=== PATIENT | female | born 1965 | race Caucasian/White ===

== ENCOUNTER 2017-02-01 17:22 | Emergency (ER) | payer MEDICAID ==
[~2017-02-01] VITALS: Ht 170.2 cm; Wt 104.3 kg
[~2017-02-01 17:22] MED LIST: CIPRO 500MG TA500 MG PO; LORTAB 5/500 501 TAB PO; MAGMTHWSH PO; MEDROL 4MG. DOSE4 MG PO; TYLENOL W/CODEI1 TA2 PO; VIBRAMYCIN 100100 MG PO
--- NOTE | 2017-02-01 17:33 | Urgent Treatment Center Report ---
See Addendum History of Present Issue Date/Time Seen by Provider 02/01/17 1732 Visit Reason Pt arrived:Walked Presenting Problem:PT STATES PAIN TO SHOULDERS THAT BEGAN SEVERAL DAYS AGO. STATES DIARRHEA BEGAN THIS MORNING AND HAS SUBSIDED. STATES NAUSEA AND PAIN TO JOINTS AND LEFT SIDE OF ABDOMEN. STATES TAKING ALEVE AT 1400. ALSO STATES HEADACHE Location if Accident: Onset of symptoms date/time:/ or onset unknown for:MEDICAL HX UNKNOWN Have you (or family members/close friends) recently traveled outside the [place]? N If Yes, where/when: Have you had exposure to infectious disease within the past month? TB? Other? Specify: c/o RUQ pain starting mild and intermittent x weeks but more intense since last night. Woke up this morning feeling feverish, joint pain, chills, diarrhea. diarrhea only this morning, resolved. Indigestion at 0200 resolved w/ gaviscon. RUQ pain has been a persistant "achy pressure" througout the day today w/ pain radiating around abdomen into back. "Like I have a band around me". Joint pain has become worse and more persistant today. Subjective fever improved around 2pm w/ aleve. No medication since. Hx of fibromyalgia and arthritis "this pain is not that". 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 Denies vomiting but constant nausea today. Source patient Exam Limitations no limitations ALLERGIES Coded Allergies: Penicillins (02/01/17) History Medical History General CAD? No Angina: Yes [place]: No Hypertension? No Hyperlipidemia? No CHF? No DVT? No PE? No COPD? No Asthma? No Anemia? No GERD? No Gastric ulcers? No GI Bleed? No Hernia? No Thyroid Problems? No Hypothyroidism? No CVA? No Seizures? No Diabetes? No Renal Insuffiency? No UTI? No Stones? No BPH? No GB Disease: Yes Nephritic Syndrome? No Asplenia? No Hepatitis? No Sickle Cell Disease? No Arthritis? Yes Migraines? No Cataracts? No Glaucoma? No MRSA? No HIV? No TB? No Anxiety? No Depression? No Cancer? No More? Yes Additional hx: FIBROMYALGIA Immunization HX DT/Tetanus 1-4 Years Ago Surgical Hx Previous Surgery?Y Tubal Ligation Social History Smoking Hx Smoker: Current Every Day Smoker Tobacco: Yes Type Cigarettes Packs/day < 1 Pack Alcohol Alcohol: No Review of Systems All Other Systems Reviewed and Negative Constitutional see HPI, malaise Respiratory denies shortness of breath Cardiovascular denies chest pain Gastrointestinal see HPI Genitourinary denies: dysuria, frequency. Musculoskeletal see HPI, denies joint swelling Skin denies change in color, denies lesions, denies lumps, denies rash Psychiatric/Neurological headache, denies numbness, denies tingling Physical Exam Vital Signs Vital Signs Date Time Temp Pulse Resp B/P Pulse O2 O2 Flow FiO2 Ox Delivery Rate 02/01 1727 99.9 101 18 144/84 96 General Appearance no apparent distress, obese Respiratory Status No: respiratory distress, productive cough, non productive cough. Lung Sounds anterior: lungs clear. posterior: lungs clear. bilateral: lungs clear. Cardiovascular no peripheral edema, no murmur, tachycardia Gastrointestinal soft, no organomegaly, no pulsatile mass, abnormal bowel sounds (hyperactive but faint), no guarding, no rebound, tenderness (primarily RUQ but throughout) Back no CVA tenderness Neurologic alert Mental status normal mood/affect Skin normal color, warm/dry Medical Decision Making LABS/Meds/Orders Pt receiving controlled substance in ED? No Results/Orders Laboratory Tests 02/01/171812: Urine Color Cancelled, Urine Appearance Cancelled, Urine pH Cancelled, Ur Specific [place] Cancelled Orders Procedure Date/time Status URINALYSIS/COMPLETE 02/01 1814 Active Progress [facility] Progress Notes Date 02/01/17 Time 1810 Comment Discussed [facility] guidelines and concerning abdominal pain w/ fever and chills. Pt agreeable to transfer to ER. Departure Departure Time of Disposition 1811 Disposition Still a Patient Clinical Impression Primary Impression: Abdominal pain Qualifiers: Abdominal location: right upper quadrant Qualified Code: R10.11 - Right upper quadrant pain Secondary Impressions: Joint pain Qualifiers: Joint pain location: unspecified Qualified Code: M25.50 - Pain in unspecified joint Low grade fever Condition STABLE Additional Instructions Sent to ER for further abdominal pain evaluation and management. Report called to Nahum in ER. Bed 4 available. at 1815
--- NOTE | 2017-02-01 17:33 | Urgent Treatment Center Report ---
See Addendum History of Present Issue Date/Time Seen by Provider 02/01/17 1732 Visit Reason Pt arrived:Walked Presenting Problem:PT STATES PAIN TO SHOULDERS THAT BEGAN SEVERAL DAYS AGO. STATES DIARRHEA BEGAN THIS MORNING AND HAS SUBSIDED. STATES NAUSEA AND PAIN TO JOINTS AND LEFT SIDE OF ABDOMEN. STATES TAKING ALEVE AT 1400. ALSO STATES HEADACHE Location if Accident: Onset of symptoms date/time:/ or onset unknown for:MEDICAL HX UNKNOWN Have you (or family members/close friends) recently traveled outside the [place]? N If Yes, where/when: Have you had exposure to infectious disease within the past month? TB? Other? Specify: c/o RUQ pain starting mild and intermittent x weeks but more intense since last night. Woke up this morning feeling feverish, joint pain, chills, diarrhea. diarrhea only this morning, resolved. Indigestion at 0200 resolved w/ gaviscon. RUQ pain has been a persistant "achy pressure" througout the day today w/ pain radiating around abdomen into back. "Like I have a band around me". Joint pain has become worse and more persistant today. Subjective fever improved around 2pm w/ aleve. No medication since. Hx of fibromyalgia and arthritis "this pain is not that". 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 Denies vomiting but constant nausea today. Source patient Exam Limitations no limitations ALLERGIES Coded Allergies: Penicillins (02/01/17) History Medical History General CAD? No Angina: Yes [place]: No Hypertension? No Hyperlipidemia? No CHF? No DVT? No PE? No COPD? No Asthma? No Anemia? No GERD? No Gastric ulcers? No GI Bleed? No Hernia? No Thyroid Problems? No Hypothyroidism? No CVA? No Seizures? No Diabetes? No Renal Insuffiency? No UTI? No Stones? No BPH? No GB Disease: Yes Nephritic Syndrome? No Asplenia? No Hepatitis? No Sickle Cell Disease? No Arthritis? Yes Migraines? No Cataracts? No Glaucoma? No MRSA? No HIV? No TB? No Anxiety? No Depression? No Cancer? No More? Yes Additional hx: FIBROMYALGIA Immunization HX DT/Tetanus 1-4 Years Ago Surgical Hx Previous Surgery?Y Tubal Ligation Social History Smoking Hx Smoker: Current Every Day Smoker Tobacco: Yes Type Cigarettes Packs/day < 1 Pack Alcohol Alcohol: No Review of Systems All Other Systems Reviewed and Negative Constitutional see HPI, malaise Respiratory denies shortness of breath Cardiovascular denies chest pain Gastrointestinal see HPI Genitourinary denies: dysuria, frequency. Musculoskeletal see HPI, denies joint swelling Skin denies change in color, denies lesions, denies lumps, denies rash Psychiatric/Neurological headache, denies numbness, denies tingling Physical Exam Vital Signs Vital Signs Date Time Temp Pulse Resp B/P Pulse O2 O2 Flow FiO2 Ox Delivery Rate 02/01 1727 99.9 101 18 144/84 96 General Appearance no apparent distress, obese Respiratory Status No: respiratory distress, productive cough, non productive cough. Lung Sounds anterior: lungs clear. posterior: lungs clear. bilateral: lungs clear. Cardiovascular no peripheral edema, no murmur, tachycardia Gastrointestinal soft, no organomegaly, no pulsatile mass, abnormal bowel sounds (hyperactive but faint), no guarding, no rebound, tenderness (primarily RUQ but throughout) Back no CVA tenderness Neurologic alert Mental status normal mood/affect Skin normal color, warm/dry Medical Decision Making LABS/Meds/Orders Pt receiving controlled substance in ED? No Results/Orders Laboratory Tests 02/01/171812: Urine Color Cancelled, Urine Appearance Cancelled, Urine pH Cancelled, Ur Specific [place] Cancelled Orders Procedure Date/time Status URINALYSIS/COMPLETE 02/01 1814 Active Progress [facility] Progress Notes Date 02/01/17 Time 1810 Comment Discussed [facility] guidelines and concerning abdominal pain w/ fever and chills. Pt agreeable to transfer to ER. Departure Departure Time of Disposition 1811 Disposition Still a Patient Clinical Impression Primary Impression: Abdominal pain Qualifiers: Abdominal location: right upper quadrant Qualified Code: R10.11 - Right upper quadrant pain Secondary Impressions: Joint pain Qualifiers: Joint pain location: unspecified Qualified Code: M25.50 - Pain in unspecified joint Low grade fever Condition STABLE Additional Instructions Sent to ER for further abdominal pain evaluation and management. Report called to Nahum in ER. Bed 4 available. at 1815
[2017-02-01 18:30] LABS: URINE BILIRUBIN - DIPSTICK NEGATIVE (NEG); URINE BLOOD NEGATIVE (NEG)
[2017-02-01 20:17] LABS: LYMPH # 1.6 K/mm3 (0.7-4.5); LYMPH % 16.5 % (10-50.0)
[2017-02-01 20:43] LABS: BUN 11 mg/dL (7-18); GFR (ESTIMATED) 75 ML/MIN (59-)
[2017-02-01 21:45] VITALS: BP 122/78
--- NOTE | 2017-02-02 14:48 | RADIOLOGY REPORT PS360 ---
ABDOMEN-FLAT UPRIGHT HISTORY: indigestion and diarrhea ORDERING PHYSICIAN: Dianne Ott MD PATIENT AGE: 51 years COMPARISON: None FINDINGS: Nonspecific nonobstructive bowel gas pattern. No evidence of intestinal obstruction, free air, or abnormal calcifications or acute bony anomalies. IMPRESSION: Nonspecific nonacute findings
== END 2017-02-01 21:46 | disposition still patient (30) ==
LOC: UTC 17:22 → ER 17:31 → UTC 17:31 → ER 21:46
PROVIDERS: Emergency Medicine; Nurse Practitioner Family
DX: R10.11 Right upper quadrant pain (principal); M25.50 Pain in unspecified joint; R50.9 Fever, unspecified; M79.7 Fibromyalgia; R19.7 Diarrhea, unspecified

== ENCOUNTER 2017-02-28 20:23 | Emergency (ER) | payer MEDICAID ==
[~2017-02-28] VITALS: Ht 170.2 cm; Wt 105.2 kg
[2017-02-28 20:44] LABS: URINE BILIRUBIN - DIPSTICK NEGATIVE (NEG); URINE BLOOD NEGATIVE (NEG)
--- NOTE | 2017-02-28 20:55 | Emergency Room Report ---
History of Present Illness Time Seen by 2019 Presenting Problem in Triage Pt arrived:Walked Presenting Problem:PT STATES SHE HAS HAD A KIDNEY INFECTION AND WENT TO HER PCP, AND TOLD HER IF HER ABD PAIN WORSENS THEN COME TO THE ER AND GET A CT SCAN, PT PAIN IS LLQ. 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 N Clinical Suspician of Infection? N Mental Status: 1 - Regular (Normal Baseline) Sepsis Risk:Possible Sepsis Risk Have you (or family members/close friends) recently traveled outside the [place]? N If Yes, where/when: Have you had exposure to infectious disease within the past month? N TB? Other? Specify: Source patient, RN notes reviewed, family, old records Exam Limitations no limitations Comment progressive lt lower abd pain with nausea over the last few days - no diarrhea and no rash and no gross fevers Cardiac Chest Pain Chest pain indicative of cardiac No Timing/Duration this evening Severity moderate ALLERGIES Coded Allergies: Penicillins (02/01/17) Home Medications Reported Medications No Known Home Medications History Medical History General CAD? No Angina: Yes [place]: No Hypertension? No Hyperlipidemia? No CHF? No DVT? No PE? No COPD? No Asthma? No Anemia? No GERD? No Gastric ulcers? No GI Bleed? No Hernia? No Thyroid Problems? No Hypothyroidism? No CVA? No Seizures? No Diabetes? No Renal Insuffiency? No End Stage Renal Disease? No UTI? No Stones? No BPH? No GB Disease: Yes Nephritic Syndrome? No Asplenia? No Hepatitis? No Sickle Cell Disease? No Arthritis? Yes Migraines? No Cataracts? No Glaucoma? No MRSA? No HIV? No TB? No Anxiety? No Depression? No Cancer? No More? 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 Respiratory denies cough, denies shortness of breath, denies wheezing Cardiovascular denies chest pain, denies syncope Gastrointestinal see HPI, abdominal pain, denies diarrhea, nausea, denies vomiting Genitourinary denies: dysuria, frequency, hesitancy, hematuria. Musculoskeletal denies back pain, denies joint pain, denies joint swelling, denies neck pain Skin denies rash Psychiatric/Neurological denies headache, denies seizure Physical Exam Vital Signs Vital Signs Date Time Temp Pulse Resp B/P Pulse O2 O2 Flow FiO2 Ox Delivery Rate 02/28 2109 95 20 150/83 94 02/28 2026 98.7 112 20 132/81 96 - WBC >12,000 or <4,000 or 10% bands? 2 or more SIRS Criteria Met? B/P:150/83 MAP:98 Creatinine >2.0? UA output<0.5ml/kg/hr for 2 hrs? Platelet count >100,000? Lactate >2.0mmol/1? INR >1.2 or PTT > than 60 sec? Evidence of Organ Dysfunction? Provider documented clinical suspician of infection? N Sepsis Criteria Count: 2 Sepsis Risk: Possible Sepsis Risk General Appearance no apparent distress Eye Exam - bilateral eye PERRL, bilateral eye EOMI Ear, Nose, Throat normal ENT inspection Neck supple Respiratory Status No: respiratory distress. 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 No Results/Orders Laboratory Tests 02/28/172102: Amylase 41, Lipase 106 02/28/172039: WBC 11.9 H, RBC 5.26, Hgb 15.1, Hct 45.7, MCV 87.0, RDW 12.6, Plt Count 224, MPV 9.5, Gran % 70.2, Gran # 8.4 H, Lymphocytes % 25.0, Monocytes % 3.0, Eosinophils % 1.4, Basophils % 0.4, Lymphocytes # 3.0, Monocytes # 0.4, Eosinophils # 0.2, Basophils # 0.1, PUBS MCHC 33.0, MCH 28.7 02/28/172035: Urine Color YELLOW, Urine Appearance CLEAR, Urine pH 6.0, Ur Specific [place] 1.010, Urine Protein NEGATIVE, Urine Ketones NEGATIVE, Urine Blood NEGATIVE, Urine Nitrate NEGATIVE, Urine Bilirubin NEGATIVE, Urine Urobilinogen 0.2, Ur Leukocyte Esterase NEGATIVE, Urine RBC OCC, Urine WBC OCC, Ur Squamous Epith Cells 3-5, Urine Bacteria TRACE, RBC Casts 2+, Urine Glucose NEGATIVE Current Medication Orders Sig/Ana Start time Last Medication Dose Route Stop Time Status Admin Acetaminophen/ 1 BELIA ONCE ONE 02/28 2200 AC Codeine Phosphate PO 02/28 2201 Ketorolac 30 MG ONCE ONE 02/28 2200 AC Tromethamine IV 02/28 2201 Sodium Chloride 10 ML PRN PRN 02/28 2045 AC IV 03/01 2035 Orders Procedure Date/time Status DIET-NOTHING BY MOUTH 03/01 B Active URINE 02/28 2055 Complete LIPASE 02/28 2037 Complete AMYLASE 02/[address] ABD & PELVIS W/O CONTRAST 02/[address] ABD/PELVIS REQ 02/28 2035 Complete IV SALINE LOCK 02/28 2035 Active URINALYSIS/COMPLETE 02/28 2035 Complete CBC WITH AUTO DIFF 02/28 2035 Complete CHEM 12 PROFILE 02/28 2035 Complete XRAY/CT/US XRAY/CT/US CT abdomen, pelvis CT interpretation by discussed w/radiologist Time results known: 2142 CT Results abnormal (epiploic appendagitis) Departure Departure Time of Disposition 2157 Disposition DC Home or Self Care(routine) Clinical Impression Primary Impression: Epiploic appendagitis Condition STABLE Referrals KANDIS ARANDA Patient Instructions DI for Abdominal Pain-Adult Additional Instructions use nsaif and see pcp for follow up Discharge Counseling Counseled pt/family regarding diagnosis, test results, medications/RX, follow up needs Prescriptions Current Visit Scripts No Known Home Medications ED Critical Care Critical Care No at 2156
[2017-02-28 21:01] LABS: HEMOGLOBIN 15.1 g/dL (12.2-16.2)
[2017-02-28 22:03] VITALS: BP 128/87
--- NOTE | 2017-03-01 09:57 | RADIOLOGY REPORT PS360 ---
CT ABD PELVIS W/O CONTRAST CLINICAL INDICATION: Left lower quadrant pain LLQ PAIN ORDERING PHYSICIAN: Zuleyma Velasco MD PATIENT AGE: 51 years COMPARISON: None TECHNIQUE: Axial images obtained with sagittal and coronal reformats. PROCEDURE: Oral Contrast: None IV Contrast: None . FINDINGS: No acute finding in the lower chest. The liver, spleen, adrenal glands, pancreas, and gallbladder have an unremarkable unenhanced CT appearance. There is a small hiatal hernia. There is nonobstructing 3 mm stone in the lower pole the left kidney. No hydronephrosis. No intestinal obstruction or free air. Unremarkable appendix. There is focal stranding of the pericolic fat anterior to the descending colon with hypodensity centrally consistent with fat and peripheral increased density consistent with epiploic appendagitis. There is diverticulosis of the descending and sigmoid colon but no definite diverticulitis. There are bilateral tubal ligation clips. No pelvic fluid collection apparent. There is a small umbilical hernia containing fat No acute bony anomalies. IMPRESSION: 1. Epiploic appendagitis of the descending colon 2. Diverticulosis. No evidence of diverticulitis. 3. Nonobstructing left nephrolithiasis 4. Hiatal hernia
--- OUTSIDE RECORDS SUMMARY | 2017-03-05 03:51 | External Medical Summary Rpt | CCD ---
Demographics Preferred Language Greek Marital Status Unknown Quaker Affiliation Unknown Race Unknown Ethnic Group Unknown Author Author QASIM Address Unknown Phone [email or web address] Purpose Continuity of Care Document - through 2016
--- OUTSIDE RECORDS SUMMARY | 2017-03-05 03:51 | External Medical Summary Rpt ---
Author Author TEODOROJAMES Production, [employer] Organization [employer] Address Unknown Phone Unavailable Results CBC W Auto Differential panel in Blood Observa Value Referen Units Interpr Notes Date tion ce etation Range Basophils 0 - 0.2 K/MM3 Normal No Sep 12 informati 2017 8:06 [#/volume on in PM ] in source Blood by data Automated count Basophils 0.1 - 2.0 % Normal No Sep 12 /100 informati 2017 8:06 leukocyte on in PM s in source Blood by data Automated count Eosinophi 0.0 - 0.4 K/mm3 Normal No Sep 12 ls informati 2017 8:06 [#/volume on in PM ] in source Blood by data Automated count Eosinophi 0.1 - % Normal No Sep 12 ls/100 12.0 informati 2017 8:06 leukocyte on in PM s in source Blood by data Automated count Granulocy 1.8 - 7.8 K/mm3 Normal No Sep 12 jackie informati 2017 8:06 [#/volume on in PM ] in source Blood by data Automated count Granulocy 37.0 - % Normal No Sep 12 jackie/100 80.0 informati 2017 8:06 leukocyte on in PM s in source Blood by data Automated count Hematocri 37.0 - % Normal No Sep 12 t [Volume 47.0 informati 2017 8:06 on in PM Fraction] source of Blood data Hemoglobi 12.2 - g/dL Normal No Sep 12 n 16.2 informati 2017 8:06 [Mass/vol on in PM ume] in source Blood data Lymphocyt 0.7 - 4.5 K/mm3 Normal No Sep 12 es informati 2017 8:06 [#/volume on in PM ] in source Unspecifi data ed specimen by Automated count Lymphocyt 10 - 50.0 % Normal No Sep 12 es informati 2017 8:06 [#/volume on in PM ] in source Unspecifi data ed specimen by Automated count Erythrocy 27 - 31.2 pg Normal No Sep 12 te mean informati 2016 8:06 corpuscul on in PM ar source hemoglobi data n [Entitic mass] Erythrocy 31.8 - g/dl Normal No Sep 12 te mean 35.4 informati 2016 8:06 corpuscul on in PM ar source hemoglobi data n concentra tion [Mass/vol ume] by Automated count Erythrocy 82.2 - fl Normal No Sep 12 te mean 97.8 informati 2016 8:06 corpuscul on in PM ar volume source [Entitic data volume] by Automated count Monocytes 0.1 - 1.0 K/mm3 Normal No Sep 12 informati 2016 8:06 [#/volume on in PM ] in source Blood by data Automated count Monocytes 1.7 - 9.3 % Normal No Sep 12 /100 informati 2016 8:06 leukocyte on in PM s in source Blood by data Automated count Platelet 7.4 - fl Normal No Sep 12 mean 10.4 informati 2016 8:06 volume on in PM [Entitic source volume] data in Blood by Automated count Platelets 142 - 424 K/mm3 Normal No Sep 12 informati 2016 8:06 [#/volume on in PM ] in source Blood data Erythrocy 4.2 - 5.4 M/mm3 Normal No Sep 12 jackie informati 2016 8:06 [#/volume on in PM ] in source Amniotic data fluid Erythrocy 11.5 - % Normal No Sep 12 te 17.5 informati 2016 8:06 distribut on in PM ion width source [Entitic data volume] by Automated count Leukocyte 4.8 - K/MM3 Normal No Sep 12 s 10.8 informati 2016 8:06 [#/volume on in PM ] in source Blood data Erythrocyte sedimentation rate by Westergren method Observa Value Referen Units Interpr Notes Date tion ce etation Range Erythrocy 0 - 30 mm/hr Normal No Sep 12 te informati 2016 8:06 sedimenta on in PM tion rate source by data Westergre n method SOCIAL ECONOMIST IgG-SOLS Observa Value Referen Units Interpr Notes Date tion ce etation Range SOCIAL ECONOMIST <1.0 <1.0 No No Perform Sep 9 Antibod NEG NEGATIV informa informa ed at: 2013 y-SOLS E tion in tion in [facility] 3:23 AM source source Diagnos data data [employer].b r\ [address] \ [place] [address] dsDNA-SOLS Observa Value Referen Units Interpr Notes Date tion ce etation Range DNA Ab NEGATIV NEGATIV No No \.br\Jan 29 (ds) E E informa informa is test 2013 Crithid tion in tion in was 1:23 AM ia, source source develop IFA-DAYTON data data ed and S its perform ance charact eristic s have been\.b r\deter mined by [employer] [facility]\.b r\Capis trano. It has not been cleared or approve d by the U.S. Food and\.br \Drug Adminis tration . The FDA has determi bhaskar that such clearan ce or\.br\ approva l is not necessa ry. Perform ance charact eristic s refer to the\.br \analyt ical perform ance of the test.\. br\Perf ormed at: [employer].b r\ [address]br \ [place] [address] Aldolase-SOLS Observa Value Referen Units Interpr Notes Date tion ce etation Range Aldolas 5.2 <=8.1 No No Perform Jan 25 e-SOLS informa informa ed at: 2013 tion in tion in [facility] 4:46 PM source source Diag, data data [facility]b r\ [address].br \ [facility] HBcAb-SOLS Observa Value Referen Units Interpr Notes Date tion ce etation Range Hepatit NEG NEGATIV No No Perform Jan 25 is B E informa informa ed at: 2013 Core tion in tion in 3:28 PM Ab, source source [facility]-S data data [facility]\.br\ [address], [address]\.br \ [facility] [place] [address] CCP IgG-SOLS Observa Value Referen Units Interpr Notes Date tion ce etation Range Cyclic <2.0 0.0 - No No \.br\ Jan 25 Citrul 5.0 informa informa 2013 Pep Ab, tion in tion in 3:14 PM source source IgG-DAYTON data data S Interpr etive Table\. br\ Low Positiv e: 5.1 - 14.9 IU/mL\. br\ High Positiv e: >= 15.0 IU/mL\. br\\.br \ In additio n to the CCP (APCA) result, and clinica l symptom s includi ng\.br\ joint involve ment, the 2009 ACR Classif ication Criteri a for\.br \ scoring /diagno sing Rheumat oid Arthrit is include the results of the\.br \ followi ng tests: RF (42852) , CRP (62688) , and ESR (76076) .\.br\ [email or web address] umatolo [email or web address]/ practic e/clini sheila/cla ssifica tion/ra /ra_201 0.asp\. br\Perf ormed at: [facility]\.br\ [address] [facility] [address] [facility], [address]br \ [place] [address] Vit D 25-OH Observa Value Referen Units Interpr Notes Date tion ce etation Range Vitamin 21.3 30.0 - ng/mL Low INTERPR Sep 5 D-25 120.0 ETIVE 2013 OH INFORMA 2:25 PM TION: Vitamin D, 25-Hydr oxy\.br \\.br\< 20 ng/mL Deficie ncy\.br \20 - 29 ng/mL Insuffi ciency\ .br\30 - 80 ng/mL Optimum Level\. br\>120 ng/mL Possibl e Toxicit y\.br\\ .br\NOT E: For infants and childre n up to 17 years of age, the optimum level is >=20 ng/mL. This assay accurat modesto quantif ies the sum of vitamin D3, 25-Hydr oxy and vitamin D2, 25-Hydr oxy. DARLYN Scn Observa Value Referen Units Interpr Notes Date tion ce etation Range DARLYN Negativ No No No DARLYN Sep 5 Screen e informa informa informa samples 2013 tion in tion in tion in are 12:43 source source source screene PM data data data d using an automat ed EIA assay. All samples that\.b r\scree n positiv e are titered by an IFA method and will include an DARLYN pattern .\.br\A titer of < 1:80 is conside red clinica lly insigni ficant. In general , a titer\. br\>= 1:160 is conside red signifi cant positiv e. SSA IgG-SOLS Observa Value Referen Units Interpr Notes Date tion ce etation Range SSA 8 <30 A_unit/ No Perform Sep 5 (Ro)Ant mL informa ed at: 2013 ibody tion in 10:37 IgG-DAYTON source Otto RICARDO S data [facility]\.br\ [address], [address]\.br \ [facility] [facility] [place] [address] Gonzalez-SOLS Observa Value Referen Units Interpr Notes Date tion ce etation Range Gonzalez 2 <30 A_unit/ No Perform Sep 5 (MARI) mL informa ed at: 2013 Antibod tion in 10:37 y-SOLS source Otto AM data [facility]\.br\ [address], [address]\.br \ [facility] [place] [address] SSB IgG-SOLS Observa Value Referen Units Interpr Notes Date tion ce etation Range SSB 1 <30 A_unit/ No Perform Sep 5 (La) mL informa ed at: 2013 Antibod tion in 10:37 y, source Otto AM IgG-DAYTON data [facility]\.br\ [address], [address]br \ [facility] [facility] [place] [address] RF Observa Value Referen Units Interpr Notes Date tion ce etation Range Rheumat 160 IU < 10 IU No Abnorma Semi-qu Sep 5 oid informa l antitat 2014 Factor tion in kiersten 10:23 source method: AM data Units IU/mL Hep C Ab Observa Value Referen Units Interpr Notes Date tion ce etation Range Hep C Negativ Negativ No No No Sep 5 Ab e e informa informa informa 2014 tion in tion in tion in 9:21 AM source source source data data data Hep Bs Ag Observa Value Referen Units Interpr Notes Date tion ce etation Range Hepatit Negativ Negativ No No No Sep 5 is B e e informa informa informa 2014 virus tion in tion in tion in 9:21 AM surface source source source Ag data data data [Presen ce] in Serum by Immunoa ssay TSH Observa Value Referen Units Interpr Notes Date tion ce etation Range Thyrotr 1.350 0.270 - mcIU/mL No No Sep 4 opin 4.200 informa informa 2013 [Units/ tion in tion in 8:58 PM volume] source source in data data Serum or Plasma CRP Observa Value Referen Units Interpr Notes Date tion ce etation Range CRP 6.07 <=5.00 mg/L High No Sep 4 informa 2014 tion in 7:13 PM source data Complement Observa Value Referen Units Interpr Notes Date tion ce etation Range C3 148 90 - mg/dL No No Sep 4 Complem 180 informa informa 2014 ent tion in tion in 7:02 PM source source data data C4 23 10 - 40 mg/dL No No Sep 4 Complem informa informa 2014 ent tion in tion in 7:02 PM source source data data Sed Rate Observa Value Referen Units Interpr Notes Date tion ce etation Range Erythro 26 0 - 20 mm High No Sep 4 cyte informa 2014 sedimen tion in 6:14 PM tation source rate by data Westerg mary method CK Observa Value Referen Units Interpr Notes Date tion ce etation Range Creatin 67 26 - IU/L No No Sep 4 e 192 informa informa 2014 kinase tion in tion in 4:29 PM [Enzyma source source tic data data activit y/volum e] in Serum or Plasma Auto Diff Observa Value Referen Units Interpr Notes Date tion ce etation Range Neutrop 70.1 No % No No Sep 4 hils informa informa informa 2013 [#/volu tion in tion in tion in 4:18 PM me] in source source source Blood data data data by Automat ed count Lymphoc 22.8 No % No No Sep 4 ytes informa informa informa 2013 [#/volu tion in tion in tion in 4:18 PM me] in source source source Blood data data data by Automat ed count Monocyt 6.2 No % No No Sep 4 es informa informa informa 2013 [#/volu tion in tion in tion in 4:18 PM me] in source source source Blood data data data by Automat ed count Eos 0.8 No % No No Sep 4 Percent informa informa informa 2014 tion in tion in tion in 4:18 PM source source source data data data Baso 0.1 No % No No Sep 4 Percent informa informa informa 2014 tion in tion in tion in 4:18 PM source source source data data data Neut# 6.7 1.8 - x10(3)/ No No Sep 4 7.7 mcL informa informa 2013 tion in tion in 4:18 PM source source data data Lymph# 2.2 0.6 - x10(3)/ No No Sep 4 4.8 mcL informa informa 2014 tion in tion in 4:18 PM source source data data Titus# 0.6 0.0 - x10(3)/ No No Sep 4 1.3 mcL informa informa 2014 tion in tion in 4:18 PM source source data data Eos# 0.1 0.0 - x10(3)/ No No Sep 4 0.5 mcL informa informa 2013 tion in tion in 4:18 PM source source data data Baso# 0.0 0.0 - x10(3)/ No No Sep 4 0.2 mcL informa informa 2014 tion in tion in 4:18 PM source source data data CBC Observa Value Referen Units Interpr Notes Date tion ce etation Range LEUKOCY 9.5 4.0 - x10(3)/ No No Sep 4 JACKIE 11.0 mcL informa informa 2013 tion in tion in 4:18 PM source source data data Erythro 5.03 3.80 - x10(6)/ No No Sep 4 cytes 5.10 mcL informa informa 2013 [#/volu tion in tion in 4:18 PM me] in source source Blood data data by Automat ed count Hemoglo 14.8 12.0 - gm/dL No No Sep 4 bin 15.6 informa informa 2013 [Mass/v tion in tion in 4:18 PM olume] source source in data data Blood Hematoc 43.7 35.7 - % No No Sep 4 rit 45.9 informa informa 2013 [Volume tion in tion in 4:18 PM source source Fractio data data n] of Blood by Automat ed count Erythro 86.8 82.5 - fL No No Sep 4 cyte 99.8 informa informa 2014 mean tion in tion in 4:18 PM corpusc source source ular data data volume [Entiti c volume] by Automat ed count Erythro 29.5 27.0 - pg No No Sep 4 cyte 34.3 informa informa 2014 mean tion in tion in 4:18 PM corpusc source source ular data data hemoglo bin [Entiti c mass] by Automat ed count Erythro 34.0 32.1 - gm/dL No No Sep 4 cyte 35.3 informa informa 2014 mean tion in tion in 4:18 PM corpusc source source ular data data hemoglo bin concent ration [Mass/v olume] by Automat ed count Erythro 13.5 11.5 - % No No Sep 4 cyte 15.0 informa informa 2014 distrib tion in tion in 4:18 PM ution source source width data data [Ratio] by Automat ed count Platele 217 144 - x10(3)/ No No Sep 4 ts 423 mcL informa informa 2014 [#/volu tion in tion in 4:18 PM me] in source source Blood data data by Automat ed count MPV 9.8 6.8 - fL No No Sep 4 10.8 informa informa 2014 tion in tion in 4:18 PM source source data data
--- OUTSIDE RECORDS SUMMARY | 2017-03-05 03:51 | External Medical Summary Rpt | CCD ---
Demographics Preferred Language Citizen Of [place] Marital Status Unknown Islam Affiliation Unknown Race Unknown Ethnic Group Unknown Author Author , QASIM YE Address Unknown Phone Immunization No patient found.
--- OUTSIDE RECORDS SUMMARY | 2017-03-05 03:51 | External Medical Summary Rpt | CCD ---
Author Author QASIM Address Unknown Phone [email or web address] Purpose Continuity of Care Document - 01-24-2014 through 2016
--- OUTSIDE RECORDS SUMMARY | 2017-03-05 03:51 | External Medical Summary Rpt | CCD ---
Demographics Preferred Language Latvian Marital Status Unknown Shinto Affiliation Unknown Race Unknown Ethnic Group Unknown Author Author QASIM Address Unknown Phone [email or web address] Purpose Continuity of Care Document - through 2016
--- OUTSIDE RECORDS SUMMARY | 2017-03-05 03:51 | External Medical Summary Rpt | CCD ---
Author Author QASIM Address Unknown Phone [email or web address] Purpose Continuity of Care Document - 01-24-2014 through 2016
--- OUTSIDE RECORDS SUMMARY | 2017-03-05 03:51 | External Medical Summary Rpt ---
[...] rate source by data Westergre n method [address] [employer] IgG-SOLS Observa Value Referen Units Interpr Notes Date tion ce etation Range [employer] FOR[employer]AN <1.0 <1.0 No No Perform Sep 9 Antibod NEG NEGATIV informa informa ed at: 2013 y-SOLS E tion in tion in [facility] 3:23 AM source source Diagnos data data [employer].b r\ [address] \ [place] [address] dsDNA-SOLS Observa Value Referen Units Interpr Notes Date tion ce etation Range DNA Ab NEGATIV NEGATIV No No \.br\Jan 29 (ds) E E informa informa is test 2013 Crithid tion in tion in was 1:23 AM ia, source source develop IFA-DAYTON data data ed and S its perform ance charact eristic s have been\.b r\deter mined by [employer] [facility]\.b r\[employer] trano. It has not been cleared or approve d by the U.S. Food and\.br \Drug Adminis tration . The FDA has determi bhaskar that such clearan ce or\.br\ approva l is not necessa ry. Perform ance charact eristic s refer to the\.br \analyt ical perform ance of the test.\. br\Perf ormed at: [employer] [facility].b r\ [address] \ [place] [address] Aldolase-SOLS Observa Value Referen Units Interpr Notes Date tion ce etation Range Aldolas 5.2 <=8.1 No No Perform Jan 25 e-SOLS informa informa ed at: 2013 tion in tion in [facility] 4:46 PM source source Diag, data data [facility]b r\ [address].br \ [facility] [place] HBcAb-SOLS Observa Value Referen Units Interpr Notes Date tion ce etation Range Hepatit NEG NEGATIV No No Perform Jan 25 is B E informa informa ed at: 2013 Core tion in tion in 3:28 PM Ab, source source [facility]-S data data [facility]\.br\ [address], [address]br \ [facility] [place] [address] CCP IgG-SOLS Observa Value Referen Units Interpr [...] of the\.br \ followi ng tests: RF (16516) , CRP (58808) , and ESR (57206) .\.br\ www.[facility] umatolo gy.org/ practic e/clini sheila/cla ssifica tion/ra /ra_201 0.asp\. br\Perf ormed at: [facility]\.br\ [address], [address]br \ [place] [address] Vit D 25-OH Observa Value Referen Units [...] RICARDO S data [facility]\.br\ [address], [address]br \ [place] [address] Gonzalez-SOLS Observa Value Referen Units Interpr Notes Date tion ce etation Range Gonzalez 2 <30 A_unit/ No Perform Sep 5 (MARI) mL informa ed at: 2013 Antibod tion in 10:37 y-SOLS source Otto AM data [facility]\.br\ [address], [address]br \ [facility] [place] [address] SSB IgG-SOLS Observa Value Referen Units Interpr Notes Date tion ce etation Range SSB 1 <30 A_unit/ No Perform Sep 5 (La) mL informa ed at: 2013 Antibod tion in 10:37 y, source Otto AM IgG-DAYTON data [facility]\.br\ [address], [address]br \ [place] [address] RF Observa Value Referen Units Interpr Notes [...] in 4:18 PM source source data data [place]# 0.6 0.0 - x10(3)/ No No Sep [...]
--- OUTSIDE RECORDS SUMMARY | 2017-03-05 03:51 | External Medical Summary Rpt | CCD ---
Demographics Preferred Language Cypriot Marital Status Unknown Rastafarian Affiliation Unknown Race Unknown Ethnic Group Unknown Author Author , QASIM YE Address Unknown Phone Immunization No patient found.
== END 2017-02-28 22:07 | disposition home or self-care (01) ==
LOC: ER 20:23
PROVIDERS: Emergency Medicine
DX: K63.89 Other specified diseases of intestine (principal); M79.7 Fibromyalgia; F17.210 Nicotine dependence, cigarettes, uncomplicated; Z88.0 Allergy status to penicillin